=== PATIENT | male | born 1970 | race Two or more races ===

== ENCOUNTER 2024-11-25 06:10 | Emergency (ER) | payer OTHER, SELFPAY ==
[2024-11-25 06:33] VITALS: BMI 33.5
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
[2024-11-25 08:47] VITALS: BP 138/84; PULSE 75; RESP 18; TEMP 36.8; O2SAT 97
[2024-11-25] MEDS: HYDROmorphone INJ 2 MG/ML VIAL 1 MG IVP (08:53)
== END 2024-11-25 13:02 | disposition home or self-care (01) ==
PROVIDERS: Emergency Provider Emergency Medicine
DX: S30.0XXA Contusion of lower back and pelvis, initial encounter (principal); S80.11XA Contusion of right lower leg, initial encounter; S00.93XA Contusion of unspecified part of head, initial encounter; S10.93XA Contusion of unspecified part of neck, initial encounter; S20.229A Contusion of unspecified back wall of thorax, initial encounter; V43.52XA Car driver injured in collision with other type car in traffic accident, initial encounter
CPT/HCPCS: 70450; 72125; 72128; 72131; 73590; 96374; 99284; J1171